=== PATIENT | male | born 1965 | race Caucasian/White ===

== ENCOUNTER → 2021-08-02 10:52 | Outpatient (CLI) | payer BC, SELFPAY ==
[2021-08-03 14:36] LABS: SARS-CoV-2 RNA PCR Positive
== END ==
PROVIDERS: PCP Family Medicine Adolescent Medicine; Visit Provider Family Medicine Adolescent Medicine
DX: U07.1 COVID-19 (principal)
CPT/HCPCS: C9803; U0003; U0005

== ENCOUNTER 2022-01-18 11:06 | Outpatient (CLI) | payer BC, SELFPAY ==
--- NOTE | ~2022-01-18 | US_ITS ---
EXAMINATION: US aorta DATE: 01/18/2022 11:52 INDICATION: Abdominal aortic aneurysm screening TECHNIQUE: Grayscale, color Doppler, and pulsed Doppler images of the aorta and common iliac arteries were obtained. COMPARISON: None. FINDINGS: The proximal aorta measures 2.4 cm. The mid aorta measures 1.8 cm. The distal aorta measures 1.7 cm. Normal triphasic arterial waveforms in the aorta. Small amount of nonhemodynamically significant athe rosclerotic plaque in the distal aorta. The right common iliac artery measures 1.3 cm. The left commo n iliac artery measures 1.2 cm. IMPRESSION: 1. Normal caliber abdominal aorta. Reviewed, dictated and finalized at location B.
== END 2022-01-18 11:07 | disposition home or self-care (01) ==
PROVIDERS: PCP Family Medicine Adolescent Medicine; Visit Provider Internal Medicine Cardiovascular Disease
DX: Z13.6 Encounter for screening for cardiovascular disorders (principal)
CPT/HCPCS: 76775

== ENCOUNTER 2022-05-24 07:54 | Outpatient (CLI) | payer BC, SELFPAY ==
--- NOTE | 2022-05-24 08:00 | ECG_ITS ---
Measurements Intervals [place] Rate: 55 P: 72 [place]: 140 QRS: 8 QRSD: 104 T: 8 QT: 400 QTc: 384 Interpretive Statements SINUS BRADYCARDIA NO PREVIOUS ECG AVAILABLE FOR COMPARISON Electronically Signed On 05-24-2022 14:27:35 CDT by Hiram Serrano M.D.
[2022-05-24 08:37] LABS: Anion Gap 8 mmol/L (8-16); Blood Urea Nitrogen 17 mg/dL (9-20); Calcium 8.3 mg/dL (8.4-10.2); Carbon Dioxide 27 mmol/L (22-30); Chloride 104 mmol/L (98-107); Estimated Glomerular Filt Rate > 60; Glucose 153 mg/dL (65-110); Sodium 139 mmol/L (137-145)
== END 2022-05-24 07:55 | disposition home or self-care (01) ==
LOC: ANHSURGERY 07:58
PROVIDERS: PCP Family Medicine Adolescent Medicine; Visit Provider Orthopaedic Surgery
DX: E11.65 Type 2 diabetes mellitus with hyperglycemia (principal); Z79.4 Long term (current) use of insulin; Z01.818 Encounter for other preprocedural examination; R00.1 Bradycardia, unspecified
CPT/HCPCS: 36415; 80048; 93005

== ENCOUNTER 2022-05-29 00:44 | Day surgery (SDC) | payer BC, SELFPAY ==
[2022-05-23 13:38] VITALS: BMI 24.3
--- NOTE | 2022-05-23 13:45 | PC.NURSE ---
Report to the Outpatient Waiting Room, entrance under the green pavilion located off [facility], at time __1200 on date _05/29/22__. Planned Procedure Time: __1400 . Time changes happen often and if your time is changed the preop area will call you the afternoon before. - You and your visitor will be asked to self-screen and do not enter if you have any COVID symptoms. - We encourage only one visitor and NO visitors under age 16 are allowed at this time. Your visitor will receive communication by the phone number that is given day of service. - The patient visitor is requested to social distance or may leave the building when not with patient due to restrictions. - A mask is required within the hospital. Patients may have clear liquids (water, carbonated beverages, clear teas, apple juice) until 3 hours prior to surgery with a maximum of 20 ounces. - No food from midnight until time of surgery - Infants may have breast milk until 4 hours before surgery, formula 6 hours prior to surgery. - Children will be allowed to drink immediately following surgery. If applicable, please bring a bottle or sippy cup to assist with drinking. Juice, water, soda, and popsicles are readily available. For infants on formula, please bring formula the day of surgery. Pacifiers are allowed. Take the following medications with a SIP of water the morning of surgery: _BYSTOLIC Medications to discontinue per physician ASPIRIN Date to take last dose____STOPPED ON 05/19/22 Please no make-up, nail slovenian, hairspray, perfume, deodorant, or body powder the day of surgery. No jewelry (including any body piercings) or valuables the day of surgery, leave them at home. Please take a shower or bath the night before, or the morning of, surgery with an antibacterial soap. Wear comfortable, loose fitting clothing. Children are encouraged to wear pajamas. - Jewelry must be removed prior to entering the operating room. Rings and piercings that are not removed may be cut off. - The hospital will not accept responsibility for valuables. - Please leave all valuables, including medications, at home the day of surgery. If you are going home after surgery, a licensed dedicated truck driver must drive you home. - NO public transportation without another adult. - We recommend that an adult stay with you for 24 hours following discharge. - We also recommend that you do not drive, make important decision, drink alcoholic beverages, or take any drugs that were not prescribed by your health care provider for at least 24 hours after your discharge time. For Pediatric surgeries, we recommend two adults accompany the child home. Follow any additional instructions given to you from your surgeon. If you or anyone in your household have experienced Covid symptoms in the past week, please notify your surgeon or the nurse liaison at the phone number below for possible testing. Telephone instructions given to _PATIENT__and asked if any additional questions and then verbalized understanding. Patient advised to call surgeon office or pre surgery nurse liaison [phone] if any additional questions.
[2022-05-29] VITALS (8 sets, daily range): BP systolic 103–119; BP diastolic 56–72; PULSE 55–70; RESP 10–16; TEMP 36.3–37.1; O2SAT 97–100
--- NOTE | 2022-05-29 07:21 | WPDHPUPDATE1 ---
History and Physical Update Update Date/Time: 05/29/22 07:21 History and Physical has been reviewed, including an updated exam of the patient. There are NO changes in the patient's condition. Risks, benefits, and alternatives have been discussed and questions answered. Patient agrees to proceed with procedure.
[2022-05-29] MEDS: ACETAMINOPHEN 500 MG TABLET 1000 MG PO (12:38)
[2022-05-29] MEDS: KETOROLAC 15 MG/ML VIAL (*BKC) IV PUSH (12:44)
[2022-05-29] MEDS: LACTATED RINGERS 1,000 ML 30 ML IV CONT ×2 (12:46→15:07)
[2022-05-29 13:02] LABS: Glucose Point of Care 144 mg/dl (65-105)
--- NOTE | 2022-05-29 13:16 | WPDANESEPPF ---
Anes - Initial Pre Proc Eval Procedure: Operation Date: 05/29/22 14:00 Proposed Procedures p Right Elbow Olecranon Bursectomy with Excision of Enthesophyte - Riaz Rios MD Date/Time: 05/29/22 13:16 Surgeon: Riaz Rios MD Pre Op Diagnosis: Rt Elbow Olecranon Bone Spur Patient Data Age: 56 Gender: M Height: 1.8 m Weight: 77.6 kg Last Vital Signs Temp 36.3 C L 05/29/22 12:45 Pulse 59 L 05/29/22 12:45 Resp 16 05/29/22 12:45 BP 119/72 05/29/22 12:45 Pulse Ox 99 05/29/22 12:45 O2 Del Method Room Air 05/29/22 12:45 Allergies Allergy/AdvReac Type Severity Reaction Status Date / Time No Known Allergies Allergy Verified 05/29/22 13:08 Home Medications Medication Instructions Recorded Confirmed Type aspirin 81 mg tablet,delayed 81 mg PO DAILY 08/17/19 05/23/22 History release nebivolol 2.5 mg tablet (Bystolic) 2.5 mg PO DAILY 10/12/19 05/29/22 History pen needle, diabetic 32 gauge x #200 ea 06/26/21 05/23/22 Rx 5/32 (1st Tier Unifine Pentips) tadalafil 5 mg tablet 5 mg PO DAILY #90 tabs 08/25/21 05/23/22 Rx pantoprazole 40 mg tablet,delayed 40 mg PO QAM #90 tabs 10/03/21 05/23/22 Rx release metformin 500 mg tablet,extended 1,000 mg PO BID 90 days #360 tabs 02/09/22 05/23/22 Rx release 24hr atorvastatin 80 mg tablet 80 mg PO QPM 90 days #90 tabs 04/12/22 05/23/22 Rx empagliflozin 25 mg tablet 25 mg PO DAILY #90 tabs 04/17/22 05/23/22 Rx (Jardiance) insulin aspar prot-insulin aspart 15 unit subcut DAILY 05/23/22 05/23/22 History 100 unit/mL (70-30) subcutaneous pen (Novolog Mix 70-30FlexPen U-100) Laboratory Tests 05/29/22 12:55 POC Capillary Glucose 144 mg/dl H mg/dl (65-105) Patient hx anesthesia problems: none Family hx anesthesia problems: none Results Review: All pre-operative results and documents have been reviewed as part of the pre-operative evaluation. [facility] Past Medical History Medical History CAD (coronary artery disease) Elevated LFTs Hypertension Long-term insulin use Olecranon bone spur Pure hypercholesterolemia, unspecified Type 2 diabetes mellitus with hyperglycemia, with long-term current use of insulin Surgical History Surgical History H/O heart artery stent Hx of tonsillectomy Family History Family History Mother Family history of cataracts Family history of diabetes mellitus in first degree relative Father Cerebrovascular accident Sibling Family history of diabetes mellitus in first degree relative Other Diabetes mellitus Hypertension Social History Social History Smoking status: Never smoker Second hand tobacco smoke exposure: No Alcohol intake: former Substance use: never Substance use type: does not use Within the Past 12 Months, Were You Worried Whether Your Food Would Run Out Before You Got Money to Buy More?: Never True What is Your Housing Situation Today?: I Have Housing Are You Worried That in the Next 2 Months, You May Not Have Your Own Housing to Live In?: No Do You Have Trouble Paying Your Heating Or Electricity Bill?: No Do You Have Trouble Paying For Medicines?: No Are You Currently Unemployed and Looking for Work?: No Highest Level of Education Completed: Bachelor's Degree Do You Have Trouble With Childcare or the Care of a Family Member?: No Living arrangements: with family Gender identity (if verbalized by the patient): Male Sexual Orientation (if Verbalized by the Patient): Straight or Heterosexual Spiritual care concerns: No Agree to blood products: Yes Anes - Eval Final PreProcedure Day of Procedure 05/29/22 13:16 Patient weight: normal Heart: regular rate and rhythm Lungs: clear to au
[2022-05-29] MEDS: ceFAZolin 2 GM/D5W 50 ML 2 GM/50 ML BAG IVPB (13:54)
[2022-05-29] MEDS: BUPIVACAINE HCL 0.5% PF 30 ML VIAL INFILTRATE (14:31)
[2022-05-29 15:12] LABS: Glucose Point of Care 138 mg/dl (65-105)
--- NOTE | 2022-05-29 16:18 | W.PM.PROC2 ---
Procedure Note - Detailed Date of Procedure 05/29/22 Pre-op Diagnosis Rt Elbow Olecranon Bone Spur Post-op Diagnosis Other (1. Right elbow olecranon enthesophyte 2. Right elbow olecranon benign mass 1-2 cm.) Procedure Performed Excision right elbow olecranon spur (enthesophyte), and small 1-2 cm benign mass. Surgeon Riaz Rios MD [employer] Elke Torres PA-C Anesthesia General Indications Painful mass at the tip of the olecranon. Radiographs showed an enthesophyte at the triceps insertion. Findings Significant mass 1-2 cm in diameter. Firm. Well circumscribed. Excised out of the bursa and sent to pathology. Moderate bursal inflammation. Small bone excrescence into the triceps insertion from the tip of the olecranon. Description of Procedure General anesthetic was administered. Preoperative antibiotics given. The right arm prepped and draped usual sterile fashion with well-padded tourniquet. The limb was exsanguinated the tourniquet inflated to 250 mmHg during the procedure. A longitude incision was created over the slightly radial midline aspect of the tip of the olecranon. A small ellipse of skin was excised. The subcutaneous mass was carefully dissected on mass. Triceps was very slightly split exposing the prominent bone. Bone was removed with the rongeur. The bone was smoothed with a rasp. Tourniquet was released. Meticulous hemostasis maintained. The wound was irrigated. The split in the triceps was repaired with 0 Vicryl suture. Subsequent layers of bursa and skin were closed with 2-0 Vicryl suture, 3-0 Monocryl suture, and running 4-0 Monocryl suture. Steri-Strips applied and a sterile bulky splint with posterior fiberglass. The patient was brought to the recovery room in stable condition. There were no complications. Estimated Blood Loss -5.0 Pathology Yes (Soft tissue mass from the olecranon bursa.) Complications No immediate complications Condition Stable Disposition PACU [facility] Billing Surgery - Charge Forward: Surgery Billing
== END 2022-05-29 17:20 | disposition home or self-care (01) ==
PROVIDERS: PCP Family Medicine Adolescent Medicine; Visit Provider Orthopaedic Surgery
PROC: (CPT 24110; principal; 2022-05-29 14:00)
DX: M77.8 Other enthesopathies, not elsewhere classified (principal); M25.721 Osteophyte, right elbow; M79.89 Other specified soft tissue disorders; I25.10 Atherosclerotic heart disease of native coronary artery without angina pectoris; E11.9 Type 2 diabetes mellitus without complications; E78.00 Pure hypercholesterolemia, unspecified; I10 Essential (primary) hypertension; Z95.5 Presence of coronary angioplasty implant and graft; Z79.82 Long term (current) use of aspirin; Z79.84 Long term (current) use of oral hypoglycemic drugs; Z79.4 Long term (current) use of insulin
CPT/HCPCS: 24120; 82948; 88304; A4565; A9270; J0690; J1100; J1170; J1885; J2250; J2405; J2704; J3010; J7120

== ENCOUNTER 2024-03-26 18:06 | Observation (INO) | payer BC, SELFPAY ==
[2024-03-26] VITALS (9 sets, daily range): BP systolic 131–158; BP diastolic 64–82; PULSE 63–80; RESP 14–20; TEMP 36.4–36.6; O2SAT 96–99; BMI 24.5
--- NOTE | ~2024-03-26 | US_ITS ---
EXAMINATION: US carotid duplex BI DATE: 03/26/2024 22:07 INDICATION: Dizziness. TECHNIQUE: Grayscale, color Doppler, and pulsed Doppler images of the cervical carotid arteries were obtained. The degree of vessel stenosis is placed in one of the following categories: normal, <50%, 5 0-69%, >=70% but less than near-occlusion, near-occlusion, or total occlusion. Note that percent sten osis relative to normal distal artery lumen diameter is indirectly measured from velocity measurement s as described by Uriel, et al. Radiology 2003; 229:340-346. COMPARISON: None. FINDINGS: RIGHT: The right common carotid artery (CCA) peak systolic velocity (PSV) is 100 cm/s. The right internal ca rotid artery (ICA) PSV is 91 cm/s. The right ICA end-diastolic velocity (EDV) is 16 cm/s. The right I CA/CCA PSV ratio is 0.9. Grayscale and color Doppler images yield an estimate of <50% diameter reduct ion from plaque in the ICA. There is antegrade flow in the right vertebral artery. LEFT: The left CCA PSV is 151 cm/s. The left ICA PSV is 92 cm/s. The left ICA EDV is 24 cm/s. The left ICA/ CCA PSV ratio is 0.6. Grayscale and color Doppler images yield an estimate of <50% diameter reduction from plaque in the ICA. There is antegrade flow in the left vertebral artery. IMPRESSION: 1. <50% stenosis in the right internal carotid artery. 2. <50% stenosis in the left internal carotid artery. Reviewed, dictated and finalized at location A.
--- NOTE | ~2024-03-26 | XR_ITS ---
EXAMINATION: XR chest 2V DATE: 03/26/2024 18:29 INDICATION: Chest pain. Dizziness. TECHNIQUE: Frontal and lateral views of the chest were obtained. COMPARISON: Chest 2 views 06/18/2016 FINDINGS: There is no pneumonia, pleural effusion, or pneumothorax. The heart size is normal. IMPRESSION: 1. No acute cardiopulmonary disease. Reviewed, dictated and finalized at location A.
--- NOTE | ~2024-03-26 | CT_ITS ---
EXAMINATION: CT brain wo con DATE: 03/26/2024 21:10 INDICATION: Dizziness. TECHNIQUE: Computed tomography (CT) of the head was performed without intravenous contrast. The mA wa s adjusted according to patient size. Iterative reconstruction technique was employed. The dose-lengt h product was 681.00 mGy-cm. COMPARISON: None FINDINGS: There is no intracranial hemorrhage, acute infarction, or abnormal intracranial mass lesion . The ventricles are normal in size. The orbits are normal. There is mild mucosal thickening in the e thmoid sinuses. The mastoid air cells are normal. IMPRESSION: 1. Normal brain. Reviewed, dictated and finalized at location A. IMPRESSION: 1. Normal brain.
--- NOTE | 2024-03-26 18:07 | ECG_ITS ---
Test Date: 2024-03-26 18:11:28 Measurements Intervals [place] Rate: 62 P: 60 [place]: 137 QRS: -2 QRSD: 94 T: 15 QT: 364 QTc: 371 Interpretive Statements SINUS RHYTHM NORMAL ELECTROCARDIOGRAM No previous ECG available for comparison Electronically Signed On 03-27-2024 07:28:55 CDT by Jose Cruz Escobar M.D.
[2024-03-26 18:34] LABS: Basophils Percent Auto 0.7 % (0.2-1.2); Eosinophils Absolute Auto 0.2 K/mm3 (0-0.3); Hematocrit 43.4 % (42.0-52.0); Hemoglobin 14.5 g/dL (14.0-18.0); Immature Granulocyte Absolute 0.03 K/mm3 (0.00-0.031); Immature Granulocyte Percent A 0.5 % (0-0.5); Lymphocytes Absolute Auto 1.77 K/mm3 (0.9-3.2); Lymphocytes Percent Auto 29.6 % (18.3-44.2); Mean Corpuscular HGB Conc 33.4 g/dl (32-36); Mean Corpuscular Hemoglobin 27.3 pg (26-34); Mean Corpuscular Volume 81.6 fl (80-100); Mean Platelet Volume 10.4 fl (7.4-10.4); Monocytes Absolute Auto 0.6 K/mm3 (0.1-0.6); Monocytes Percent Auto 10.1 % (2.6-8.5); Neutrophils Absolute Auto 3.4 K/mm3 (1.3-6.7); Neutrophils Percent Auto 56.1 % (45.5-73.1); Platelet Count Result 222 k/mm3 (150-375); Red Blood Count 5.32 M/mm3 (4.6-6.20); Red Cell Distribution Width 14.7 % (11.5-14.5)
[2024-03-26 18:37] LABS: Alanine Aminotransferase 23 U/L (6-50); Albumin Level 4.6 g/dL (3.5-5.1); Alkaline Phosphatase 82 U/L (38-126); Anion Gap 13 mmol/L (4-12); Aspartate Amino Transferase 24 U/L (17-59); Bilirubin,Total 0.3 mg/dL (0.2-1.3); Blood Urea Nitrogen 18 mg/dL (9-20); Calcium 9.1 mg/dL (8.4-10.2); Carbon Dioxide 24 mmol/L (22-30); Chloride 99 mmol/L (98-107); Estimated CRCL calculation 82 ml/min; Estimated Glomerular Filt Rate > 60; Glucose 162 mg/dL (65-110); Lipase 104 U/L (23-300); Sodium 136 mmol/L (137-145)
[2024-03-26 18:39] LABS: INR 0.9; Prothrombin Time 12.2 Seconds (11.1-14.7)
[2024-03-26 18:40] LABS: Partial Thromboplastin Time 29.5 Seconds (22.3-36.8)
[2024-03-26 18:49] LABS: Troponin I < 0.012 ng/mL (0.000-0.034)
--- NOTE | 2024-03-26 19:39 | ED.DIZZY ---
HPI - Dizziness General Chief Complaint: Dizziness Stated Complaint: lightheaded, chest pain Time Seen by Provider: 03/26/24 19:39 Source: patient Mode of arrival: ambulatory History of Present Illness HPI Narrative: 4 YEARS OLD WHITE MALE CAME TO THE EMERGENCY ROOM BY PRIVATE CAR COMPLAINING OF DIZZINESS, LIKE GOING TO PASS OUT STARTED 10:00 A.M.. PATIENT WORKED A RETAIL PRICING COORDINATOR, THIS HAPPEN WHILE STANDING FOR LESS THAN 1 HOUR. GET SLIGHTLY BETTER SITTING BUT STILL THERE. LATER STARTED HAVING FUNKY FEELING IN THE CHEST, THE EMERGENCY ROOM PATIENT FEELS LIKE HIS HEAD IS CLOUDY AND FLOATING. PATIENT REPORT THE ABOVE SYMPTOM WORSE WITH STANDING AND ANY ACTIVITY, PROBABLY SLIGHTLY BETTER SITTING. HE DENIES HAVING SIMILAR SYMPTOMS IN THE PAST. HISTORY OF DIABETES, HYPERLIPIDEMIA, CORONARY STENT X2. HE DENIES ANY FEVER, CHILLS, NAUSEA, VOMITING, SPINNING FEELING. Related Data Home Medications Medication Instructions Recorded Confirmed nebivolol 2.5 mg tablet (Bystolic) 2.5 mg PO DAILY 10/12/19 02/24/24 nitroglycerin 0.4 mg sublingual 0.4 mg sublingual Q5M PRN chest 01/22/23 02/24/24 tablet pain aspirin 81 mg tablet,delayed 81 mg PO DAILY 04/29/23 02/24/24 release Allergies Allergy/AdvReac Type Severity Reaction Status Date / Time No Known Allergies Allergy Verified 03/26/24 18:06 Review of Systems Review of Systems: All systems reviewed & are unremarkable except as noted in HPI and below PMFSH Past Medical History Medical History CAD (coronary artery disease) CAD (coronary artery disease) Diabetes Dyslipidemia Elevated LFTs Erectile dysfunction Erectile dysfunction GERD (gastroesophageal reflux disease) GERD (gastroesophageal reflux disease) History of [place] (myocardial infarction) 2016 HTN (hypertension) Hypertension Long-term insulin use Olecranon bone spur Pure hypercholesterolemia, unspecified Type 2 diabetes mellitus with hyperglycemia, with long-term current use of insulin Surgical History Surgical History H/O heart artery stent (2016) History of elbow surgery right 2021 lump removed History of tonsillectomy Hx of heart artery stent 2017 Hx of tonsillectomy Family History Family History Mother Family history of cataracts Family history of diabetes mellitus in first degree relative Father Cerebrovascular accident Sibling Family history of diabetes mellitus in first degree relative Other Diabetes mellitus Hypertension Social History Social History Smoking status: Unknown if ever smoked Second hand tobacco smoke exposure: No Alcohol intake: current Alcohol use details: social Substance use: never Substance use type: does not use Do You Feel Safe in your Home?: Yes Lack of Transportation: No Lack of Food: Never True Current Housing: I Have Housing Concerned About Future Housing: No Difficulty Paying Gas/Electric Bills: No Difficulty Paying for Meds: No Currently Unemployed: No Education: Bachelor's Degree Difficulty w/ Childcare or Family Care: No Living arrangements: with family Additional living arrangements comments: spouse Occupation/Education: retired Gender identity (if verbalized by the patient): Male Sexual Orientation (if Verbalized by the Patient): Straight or Heterosexual Spiritual care concerns: No Agree to blood products: Yes Exam Narrative: GENERAL APPEARANCE: WELL-DEVELOPED, WELL-NOURISHED SKIN: NORMAL COLOR HEAD: NORMOCEPHALIC, NONTRAUMATIC EYES: CLEAR CONJUNCTIVA ENT: OROPHARYNX NORMAL, EARS NORMAL, NOSE NORMAL NECK: SUPPLE, NONTENDER CHEST AND RESPIRATORY: AIRWAY PATENT, NO RESPIRATORY DISTRESS, NO ACCESSORY MUSCLE USE HEART: REGULAR RATE/RHYTHM ABDOMEN: SOFT, NONTENDER, NO ORGANOMEGALY, QUIET
--- NOTE | 2024-03-26 20:04 | PC.NURSE ---
EDP Dr. Niurka ROBLES non admin ordered asa.
[2024-03-26] MEDS: ASPIRIN 81 MG CHEWABLE TABLET 324 MG PO (20:50)
[2024-03-26 21:38] LABS: Troponin I < 0.012 ng/mL (0.000-0.034)
--- NOTE | 2024-03-26 21:42 | PM.IMHP ---
H&P: HPI History of Present Illness Date/Time: 03/26/24 21:42 Chief Complaint: dizziness yesteday Narrative: This is a 58-year-old male patient who came to the emergency room today with complaints of dizziness. The patient stated is not vertigo and that he just feels dizzy at times. The patient stated when he was standing up walking felt dizzy and when he sat down and felt somewhat better. Patient stated that he felt that his mentation was slow today. The patient has a history of diabetes hyperlipidemia coronary artery disease with 2 stents. His sodium was slightly low at 136. 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 His a has diabetes and his blood sugar was 162 and then 135. His troponins were negative x2. He had carotid Dopplers with less than 50% stenosis in the right internal and left internal carotid artery. Head CT shows a normal brain. Chest x-ray was read as no acute cardiopulmonary disease. The patient is being admitted to observation status on the date of service of 03/27/2024. Review of Systems Review of Systems: All systems reviewed & are unremarkable except as noted in HPI and below Constitutional: Constitutional: Reports as per HPI and Reports no additional constitutional complaints Eyes: Eyes: Reports as per HPI and Reports no additional eye complaints ENT: Reports system reviewed and no additional complaints, except as documented and Reports Normal hearing present Cardiovascular: Cardiovascular: Reports no additional cardiovascular complaints Respiratory: Respiratory: Reports as per HPI and Reports no additional respiratory complaints Gastrointestinal: Gastrointestinal: Reports as per HPI and Reports no additional gastrointestinal complaints Musculoskeletal: Musculoskeletal: Reports no additional musculoskeletal complaints Integumentary/Breasts: Skin/Breast: Reports system reviewed and no additional complaints, except as docu Neurologic: Reports system reviewed and no additional complaints, except as documented and Reports Normal hearing present Psychiatric: Psychiatric: Reports no additional psychiatric complaints and Reports as per HPI Endocrine: Endocrine: Reports no additional endocrine complaints Hematologic/Lymphatic: Hematologic/Lymphatic: Reports no additional hematologic/lymphatic complaints Allergic/Immunologic: Allergic/Immunologic: Reports no additional allergic/immunologic complaints [facility] Past Medical History Medical History (Updated 03/27/24 @ 00:05 by Gala Grimm NP) CAD (coronary artery disease) CAD (coronary artery disease) Diabetes Dyslipidemia Elevated LFTs Erectile dysfunction Erectile dysfunction GERD (gastroesophageal reflux disease) GERD (gastroesophageal reflux disease) History of [place] (myocardial infarction) 2016 HTN (hypertension) (~03/27/24) denies Hypertension Long-term insulin use Olecranon bone spur Pure hypercholesterolemia, unspecified Type 2 diabetes mellitus with hyperglycemia, with long-term current use of insulin Surgical History Surgical History H/O heart artery stent (2016) 2 stents History of elbow surgery right 2021 lump removed History of tonsillectomy Hx of heart artery stent 2016 Hx of tonsillectomy Family History Family History Mother Family history of cataracts Family history of diabetes mellitus in first degree relative Father Cerebrovascular accident Sibling Family history of diabetes mellitus in first degree relative Other Diabetes mellitus Hypertension Social History Social History (Updated 03/27/24 @ 00:06 by Gala Grimm NP) Social History: He endorses full code. He lives with his . His is the power family law attorney. Smoking status: Never smoker Second hand tobacco smoke exposure: No Alcohol intake: current Drinks per week: 1 Alcohol use details: social [place]
--- NOTE | 2024-03-26 22:59 | ADMGEN ---
This patient, Kailash Murray, was admitted to IMU Room 213-01. Patient/family oriented to hospital policies and general routines including ID bracelet, bed and alarms, visiting hours, pain management, procedures, bathroom and other care routines, personal items, smoking policy, room service/diet, and visiting hours. Information on how to activate the Rapid Response Team has been discussed. Patient/Family are encouraged to report perceived risks to care and to ask questions if they do not understand what they are told or what they should do.
[2024-03-26 23:09] LABS: Glucose Point of Care 135 mg/dl (65-105)
[2024-03-27] VITALS (22 sets, daily range): BP systolic 127–138; BP diastolic 59–81; PULSE 52–95; RESP 14–18; TEMP 36.3–36.7; O2SAT 96–100
--- NOTE | 2024-03-27 | ECHO_ITS ---
Patient Info Name: Kailash Murray Age: 58 years : 1965 Gender: Male Ht: 71 in Wt: 175 lbs BSA: 2.00 m2 HR: 95 bpm BP: 137 / 74 mmHg Heart Rhythm: Sinus Rhythm Technical Quality: Good Exam Date: 03/27/2024 11:23 AM Exam Location: Echo Lab Patient Status: Inpatient Admit Date: 03/26/2024 Staff Ordering Physician: Brian Laird MD Overlay Plastician: Fatuma Reveles RDCS Attending Provider: Zayra Reese DO Exam Type: CA echo doppler color flow Study Info Indications - dizziness Complete two-dimensional, color flow and Doppler transthoracic echocardiogram is performed. Summary 1. Complete two-dimensional, color flow and Doppler transthoracic echocardiogram is performed. 2. Trivial mitral regurgitation is an and chemically normal appearing valve, no clinical significance. 3. Otherwise unremarkable echocardiogram. Left Ventricle Left ventricular chamber dimension is normal. Left ventricular systolic function is normal, estimated at 55-60%. The left ventricular diastolic function is normal. Right Ventricle Right ventricular chamber dimension is normal. Left Atria Left atrial chamber dimension is normal. Right Atria Right atrial chamber dimension is normal. Aortic Valve The aortic valve is normal. Pulmonic Valve The pulmonic valve is normal. Mitral Valve The mitral valve has normal leaflets. There is trace mitral valve regurgitation. Tricuspid Valve The tricuspid valve leaflets are normal. Pericardium/Pleural The pericardium appears normal. Aorta The aortic root size at the sinus of Valsalva is normal. Left Ventricular Outflow Tract Name Value Normal LVOT 2D LVOT Diameter 1.9 cm LVOT Doppler LVOT Peak Gradient 5 mmHg LVOT Mean Gradient 3 mmHg LVOT VTI 28 cm LVOT VTI/AV VTI Ratio 1.2 LVOT Stroke Volume 76 ml LVOT CO 4.6 l/min LVOT CI 2.3 l/min/m2 Pulmonic Valve Name Value Normal PV Doppler PV Peak Gradient 5 mmHg Mitral Valve Name Value Normal MV Doppler MV Decel Butts 345 cm/s2 MV PHT 64 ms MV Area (PHT) 3.4 cm2 4.0-5.0 MV Diastolic Function MV E Peak Velocity 77 cm/s MV A Peak Velocity 60 cm/s MV E/A 1.3 MV Decel Time 222 ms MV Annular
--- NOTE | 2024-03-27 00:05 | ECG_ITS ---
Test Date: 2024-03-27 00:11:16 Measurements Intervals [place] Rate: 63 P: 66 [place]: 146 QRS: 8 QRSD: 102 T: 26 QT: 392 QTc: 401 Interpretive Statements SINUS RHYTHM NORMAL ELECTROCARDIOGRAM Compared to ECG 03/26/2024 18:11:28 No significant changes Electronically Signed On 03-27-2024 07:36:47 CDT by Jose Cruz Escobar M.D.
[2024-03-27] MEDS: SODIUM CHLORIDE 0.9% IV 1,000 ML 75 ML IV CONT (00:11)
[2024-03-27 00:56] LABS: Troponin I < 0.012 ng/mL (0.000-0.034)
[2024-03-27 05:08] LABS: Anion Gap 12 mmol/L (4-12); Blood Urea Nitrogen 16 mg/dL (9-20); Calcium 8.8 mg/dL (8.4-10.2); Carbon Dioxide 26 mmol/L (22-30); Chloride 102 mmol/L (98-107); Estimated CRCL calculation 91 ml/min; Estimated Glomerular Filt Rate > 60; Glucose 114 mg/dL (65-110); Potassium 4.1 mmol/L (3.4-5.0); Sodium 140 mmol/L (137-145)
[2024-03-27 05:17] LABS: Basophils Percent Auto 0.5 % (0.2-1.2); Eosinophils Absolute Auto 0.2 K/mm3 (0-0.3); Eosinophils Percent Auto 3.4 % (0-4.4); Hemoglobin 13.9 g/dL (14.0-18.0); Immature Granulocyte Absolute 0.03 K/mm3 (0.00-0.031); Immature Granulocyte Percent A 0.5 % (0-0.5); Lymphocytes Absolute Auto 1.72 K/mm3 (0.9-3.2); Lymphocytes Percent Auto 31.2 % (18.3-44.2); Mean Corpuscular HGB Conc 32.3 g/dl (32-36); Mean Corpuscular Hemoglobin 26.8 pg (26-34); Mean Platelet Volume 10.1 fl (7.4-10.4); Monocytes Absolute Auto 0.5 K/mm3 (0.1-0.6); Monocytes Percent Auto 9.8 % (2.6-8.5); Neutrophils Percent Auto 54.6 % (45.5-73.1); Platelet Count Result 191 k/mm3 (150-375); Red Blood Count 5.18 M/mm3 (4.6-6.20); Red Cell Distribution Width 14.5 % (11.5-14.5); White Blood Count 5.5 K/mm3 (4.5-10.0)
[2024-03-27 08:26] LABS: Glucose Point of Care 135 mg/dl (65-105)
[2024-03-27] MEDS: ASPIRIN 81 MG ENTERIC TABLET PO (08:51)
[2024-03-27] MEDS: EMPAGLIFLOZIN 25 MG TABLET PO (08:51)
[2024-03-27] MEDS: NEBIVOLOL HCL 2.5 MG TABLET PO (08:52)
--- NOTE | 2024-03-27 13:55 | PM.IMPN ---
Progress Note: A&P Assessment and Plan (1) Dizziness: Code(s): R42 - Dizziness and giddiness Status: Acute Assessment and Plan: -orthostatic blood pressures every shift -head CT was negative -carotids less than 50% occlusion -IV fluids -D/C meclizine (2) Dyslipidemia: Code(s): E78.5 - Hyperlipidemia, unspecified Status: Acute Assessment and Plan: -continue with home dose of atorvastatin (3) Diabetes: Code(s): E11.9 - Type 2 diabetes mellitus without complications Status: Acute Assessment and Plan: -Accu-Cheks AC and HS -continue with home medication (4) CAD (coronary artery disease): Code(s): I25.10 - Atherosclerotic heart disease of the [place] coronary artery without angina pectoris Status: Acute Assessment and Plan: -unremarkable EKG - continue with any be nebivolol. He has a history of 2 cardiac stents. -continue with aspirin -patient declines hypertension and states that he is on medication for his heart and not blood pressure he asked that the hypertension be removed from with profile. -troponins have been negative. -ECHO pending Plan SCDs for DVT prophylaxis Subjective Date/time seen: 03/27/24 13:55 Interval history: Patient was examined at the bedside. Patient reports of dizziness from yesterday but reports his is been going on for brief period of time. His labs EKG, troponin reviewed and shows no significant findings. Ultrasound of the carotid shows less than 50% stenosis in both right and left internal carotid artery. His echo still pending. Review of Systems Review of Systems: All systems reviewed & are unremarkable except as noted in HPI and below Constitutional: Constitutional: Reports as per HPI and Reports no additional constitutional complaints Eyes: Eyes: Reports as per HPI and Reports no additional eye complaints ENT: Reports system reviewed and no additional complaints, except as documented and Reports Normal hearing present Cardiovascular: Cardiovascular: Reports no additional cardiovascular complaints Respiratory: Respiratory: Reports as per HPI and Reports no additional respiratory complaints Gastrointestinal: Gastrointestinal: Reports as per HPI and Reports no additional gastrointestinal complaints Musculoskeletal: Musculoskeletal: Reports no additional musculoskeletal complaints Integumentary/Breasts: Skin/Breast: Reports system reviewed and no additional complaints, except as docu Neurologic: Reports system reviewed and no additional complaints, except as documented and Reports Normal hearing present Psychiatric: Psychiatric: Reports no additional psychiatric complaints and Reports as per HPI Endocrine: Endocrine: Reports no additional endocrine complaints Hematologic/Lymphatic: Hematologic/Lymphatic: Reports no additional hematologic/lymphatic complaints Allergic/Immunologic: Allergic/Immunologic: Reports no additional allergic/immunologic complaints Exam Const: General: cooperative, healthy appearing, comfortable, no acute distress, well developed, awake, Physically active, average body habitus and well nourished Nutritional Appearance: average body habitus and well nourished Orientation/consciousness: oriented to person, oriented to place, oriented to time and patient oriented x3 Limitations: no limitations HENMT: Head: normal to inspection, No palpable skull fracture present, normocephalic, atraumatic and abrasion Ears: hearing grossly normal bilaterally Eyes: General: appearance normal, both eyes and all related structures Alignment and Position: alignment normal Periorbital: periorbital findings normal Eyelids: eyelids normal Pupils: Equal, round and reactive pupils present and Pupil accommodation reflex normal EOM: EOMs intact bilaterally Neck: Neck: normal visual inspection, full ROM, no lymphadenopathy, trachea midline and supple Carotids: normal carotid upstroke Chest: Chest palpation
[2024-03-27 15:00] LABS: Glucose Point of Care 107 mg/dl (65-105)
[2024-03-27 16:15] LABS: Glucose Point of Care 141 mg/dl (65-105)
[2024-03-27] MEDS: ATORVASTATIN 40 MG TABLET 80 MG PO (17:44)
[2024-03-27] MEDS: PANTOPRAZOLE 40 MG TABLET PO (17:44)
[2024-03-27] MEDS: INSULIN GLARGINE (*BKC) 100 UNITS/ML 20 UNITS SUB-Q (20:28)
[2024-03-27 20:32] LABS: Glucose Point of Care 163 mg/dl (65-105)
[2024-03-28] VITALS (10 sets, daily range): BP systolic 123–138; BP diastolic 62–72; PULSE 50–65; RESP 16–20; TEMP 36.4–36.7; O2SAT 98–99
[2024-03-28 05:33] LABS: Hematocrit 44.2 % (42.0-52.0); Hemoglobin 14.7 g/dL (14.0-18.0); Mean Corpuscular HGB Conc 33.3 g/dl (32-36); Mean Corpuscular Hemoglobin 26.8 pg (26-34); Mean Corpuscular Volume 80.5 fl (80-100); Platelet Count Result 205 k/mm3 (150-375); Red Blood Count 5.49 M/mm3 (4.6-6.20); Red Cell Distribution Width 14.5 % (11.5-14.5); White Blood Count 6.2 K/mm3 (4.5-10.0)
[2024-03-28 05:47] LABS: Alanine Aminotransferase 25 U/L (6-50); Albumin Level 4.3 g/dL (3.5-5.1); Alkaline Phosphatase 76 U/L (38-126); Anion Gap 11 mmol/L (4-12); Aspartate Amino Transferase 26 U/L (17-59); Bilirubin,Total 0.8 mg/dL (0.2-1.3); Blood Urea Nitrogen 16 mg/dL (9-20); Calcium 8.9 mg/dL (8.4-10.2); Carbon Dioxide 25 mmol/L (22-30); Chloride 103 mmol/L (98-107); Estimated CRCL calculation 91 ml/min; Estimated Glomerular Filt Rate > 60; Glucose 109 mg/dL (65-110); Potassium 3.8 mmol/L (3.4-5.0); Sodium 139 mmol/L (137-145)
--- NOTE | 2024-03-28 08:33 | ECG_ITS ---
Test Date: 2024-03-28 09:38:21 Measurements Intervals [place] Rate: 61 P: 64 MN: 143 QRS: 0 QRSD: 97 T: 6 QT: 380 QTc: 385 Interpretive Statements SINUS RHYTHM Compared to ECG 03/27/2024 00:11:16 No significant changes Electronically Signed On 03-28-2024 14:45:22 CDT by Oumar Parkinson M.D.
[2024-03-28] MEDS: EMPAGLIFLOZIN 25 MG TABLET PO (08:54)
[2024-03-28] MEDS: ASPIRIN 81 MG ENTERIC TABLET PO (08:54)
[2024-03-28] MEDS: NEBIVOLOL HCL 2.5 MG TABLET PO (08:55)
[2024-03-28 08:59] LABS: Glucose Point of Care 267 mg/dl (65-105)
[2024-03-28 12:06] LABS: Glucose Point of Care 174 mg/dl (65-105)
--- NOTE | 2024-03-28 12:41 | PM.DS ---
DS: Admitting Diagnosis Discharge Date 03/28/2024 Admitting Diagnosis Dizziness, Chest pain DS: Summary Hospital Course Hospital Course: This is a 58-year-old male patient who came to the emergency room today with complaints of dizziness. The patient stated is not vertigo and that he just feels dizzy at times. The patient stated when he was standing up walking felt dizzy and when he sat down and felt somewhat better. Patient stated that he felt that his mentation was slow today. The patient has a history of diabetes hyperlipidemia coronary artery disease with 2 stents. His sodium was slightly low at 136. 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 His a has diabetes and his blood sugar was 162 and then 135. His troponins were negative x2. He had carotid Dopplers with less than 50% stenosis in the right internal and left internal carotid artery. Head CT shows a normal brain. Chest x-ray was read as no acute cardiopulmonary disease. We performed EKG was unremarkable,-troponins have been negative,ECHO was unremarkable. Carotid Doppler shows less than 50% stenosis in the right internal and left internal carotid artery.Advised to continue asa and nebivolol. He has a history of 2 cardiac stents. Upon discharge patient may need Es to be evaluated by the Cardiology as an outpatient. Patient needs to follow up with the primary care physician within a week upon discharge. Patient is not continued on meclizine. Status at Discharge Cognitive/behavioral status at discharge: Stable Time Spent with Patient Time attestation: Total time spent providing and/or coordinating discharge services: 45 minutes Exam Const: General: cooperative, healthy appearing, comfortable, no acute distress, well developed, awake, Physically active, average body habitus and well nourished Nutritional Appearance: average body habitus and well nourished Orientation/consciousness: oriented to person, oriented to place, oriented to time and patient oriented x3 Limitations: no limitations HENMT: Head: normal to inspection, No palpable skull fracture present, normocephalic, atraumatic and abrasion Ears: hearing grossly normal bilaterally Eyes: General: appearance normal, both eyes and all related structures Alignment and Position: alignment normal Periorbital: periorbital findings normal Eyelids: eyelids normal Pupils: Equal, round and reactive pupils present and Pupil accommodation reflex normal EOM: EOMs intact bilaterally Neck: Neck: normal visual inspection, full ROM, no lymphadenopathy, trachea midline and supple Carotids: normal carotid upstroke Chest: Chest palpation & inspection: normal inspection of the chest Resp: Effort & Inspection: normal respiratory effort Auscultation: clear to auscultation bilaterally Percussion: percussion normal Cardio: Palpation: normal PMI Rate: regular rate Rhythm: regular rhythm Heart sounds: S1 normal heart sound present and S2 normal heart sound present Peripheral pulses: Peripheral pulses 2+ throughout GI: Inspection: normal to inspection Auscultation: normal bowel sounds Rectal Exam: deferred Back/Spine/Pelvis: Cervical Spine: cervical ROM normal Skin: General skin exam: normal color Lesions: no lesions Rashes: no rashes Trauma: no lacerations or abrasions Wounds: no wounds Hair: normal Nails: normal Neuro: General: oriented to person, oriented to place, oriented to time and patient oriented x3 Cranial nerves: Yes Equal, round and reactive pupils present and Yes Normal hearing present Cognition (Neuro): normal cognition Speech: normal speech Gait exam (Neuro): Normal gait present Motor exam (neuro): 5/5 motor strength present throughout Sensory Exam: normal sensation Extrem: General: normal to inspection Right upper extremity: normal to inspection and shoulder/upper arm Left upper extremity: normal to inspection and shoulder/upper arm Right lower extremity: normal to inspection Left l
== END 2024-03-28 14:08 | disposition home or self-care (01) ==
LOC: ANHED 20:33 → ANHIMU 03-27 05:31
PROVIDERS: Emergency Medicine; Nurse Practitioner; Admitting Provider Internal Medicine; Emergency Provider Emergency Medicine; PCP Family Medicine Adolescent Medicine; Visit Provider General Practice
DX: R42 Dizziness and giddiness (principal); R07.9 Chest pain, unspecified; E11.9 Type 2 diabetes mellitus without complications; E78.5 Hyperlipidemia, unspecified; I25.10 Atherosclerotic heart disease of native coronary artery without angina pectoris; K21.9 Gastro-esophageal reflux disease without esophagitis; I25.2 Old myocardial infarction; I65.23 Occlusion and stenosis of bilateral carotid arteries; I10 Essential (primary) hypertension; Z95.5 Presence of coronary angioplasty implant and graft; Z79.82 Long term (current) use of aspirin; Z79.4 Long term (current) use of insulin; Z79.84 Long term (current) use of oral hypoglycemic drugs
CPT/HCPCS: 36415; 70450; 71046; 80048; 80053; 82948; 83690; 84484; 85025; 85027; 85610; 85730; 93005; 93306; 93880; 96360; 96361; 99285; A9270; G0378; J1815; J7030